=== PATIENT | female | born 2000 | race Caucasian/White ===

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

== ENCOUNTER → 2020-11-07 | Emergency (ER) | payer OTHER ==
[~2020-11-07] VITALS: Ht 167.6 cm; Wt 127.3 kg
[~2020-11-07] MED LIST changes: +ALBU6.7H9 INH; +METH4TAB3 PO
[2020-11-07 22:08] VITALS: BP 137/79
== END | disposition home or self-care (01) ==
LOC: ER 21:41
DX: R00.2 Palpitations (principal); R11.0 Nausea; R42 Dizziness and giddiness; Z86.2 Personal history of diseases of the blood and blood-forming organs and certain disorders involving the immune mechanism; Z79.2 Long term (current) use of antibiotics; Z79.899 Other long term (current) drug therapy
CPT/HCPCS: 93005; 99283